=== PATIENT | female | born 1985 | race American Indian/Alaskan Native ===

== ENCOUNTER 2021-08-10 00:25 | Emergency (ER) | payer SELFPAY ==
[2021-08-10 01:03] VITALS: BP 117/69
[2021-08-10] MEDS ORDERED: BENZONATATE 100 MG CAP PO ONE (04:57)
[2021-08-10] MEDS ORDERED: ONDANSETRON 4 MG ODT TAB PO ONE (04:57)
[2021-08-10] MEDS ORDERED: IBUPROFEN 400 MG TAB PO ONE (04:57)
--- NOTE | 2021-08-10 04:57 | Emergency Department Report ---
ED General Adult HPI - General Chief complaint: Upper Respiratory Infection Stated complaint: COUGH AND CONGESTION PUI?: Yes Time Seen by Provider: 08/10/21 04:46 Source: patient, RN notes reviewed Mode of arrival: Ambulatory Limitations: No Limitations - History of Present Illness Initial comments: The patient is a 35-year-old female, who is not known to myself previously. She states that she is not , does not smoke, is not exposed to smoke products, and is not COVID-19 vaccinated. She recently moved to [place] from [place]. She presents to the ER today with complaint of nontraumatic and nonproductive cough for the past 2 weeks, basically since July 18, after [employer]. Mild headache associate with coughing. No vomiting, but mild nausea, with coughing. No abdominal pain. No urinary symptoms. Reports to negative Covid test. Has not attempted [id number] Tylenol or ibuprofen. Has attempted Robitussin. States that she was told by her grandfather/family member, who is not a medical professional, that she may require steroids. -: Gradual, week(s) Location: head, mouth Consistency: constant Improves with: none Worsens with: none - Related Data Previous Rx's Medication Instructions Recorded Last Taken Type Albuterol Sulfate [Proair 90 mcg IH Q4HR PRN #2 aer.[email or web address] 08/10/21 Unknown Rx Respiclick] Benzonatate [Tessalon Perles] 100 mg PO Q8HR PRN #30 capsule 08/10/21 Unknown Rx Loratadine [Claritin] 10 mg PO QDAY #30 tablet 08/10/21 Unknown Rx Metoclopramide [Reglan] 10 mg PO QID PRN #30 tablet 08/10/21 Unknown Rx Allergies Allergy/AdvReac Type Severity Reaction Status Date / Time No Known Allergies Allergy Verified 08/10/21 05:08 ED Review of Systems ROS: Stated complaint: COUGH AND CONGESTION Other details as noted in HPI Constitutional: other (Denies loss of taste and smell). denies: fever ENT: congestion Respiratory: cough Cardiovascular: denies: syncope Gastrointestinal: denies: abdominal pain, nausea, vomiting Neurological: denies: weakness ED Past Medical Hx - Past Medical History Previous Medical History?: No - Surgical History Past Surgical History?: No - Medications Home Medications: Home Medications Medication Instructions Recorded Confirmed Last Taken Type Albuterol Sulfate [Proair 90 mcg IH Q4HR PRN #2 aer.[email or web address] 08/10/21 Unknown Rx Respiclick] Benzonatate [Tessalon Perles] 100 mg PO Q8HR PRN #30 capsule 08/10/21 Unknown Rx Loratadine [Claritin] 10 mg PO QDAY #30 tablet 08/10/21 Unknown Rx Metoclopramide [Reglan] 10 mg PO QID PRN #30 tablet 08/10/21 Unknown Rx ED Physical Exam - General Limitations: No Limitations General appearance: alert, in no apparent distress - Head Head exam: Present: atraumatic, normocephalic - Eye Eye exam: Present: normal appearance, EOMI. Absent: nystagmus - ENT ENT exam: Present: normal exam, normal orophraynx, mucous membranes moist, normal external ear exam - Neck Neck exam: Present: normal inspection, full ROM. Absent: tenderness, meningismus - Respiratory Respiratory exam: Present: normal lung sounds bilaterally. Absent: respiratory distress, wheezes, rales, rhonchi, stridor - Cardiovascular Cardiovascular Exam: Present: normal rhythm, bradycardia, normal heart sounds. Absent: tachycardia, irregular rhythm, systolic murmur, diastolic murmur, rubs, gallop - GI/Abdominal GI/Abdominal exam: Present: soft. Absent: distended, tenderness, guarding, rebound, rigid, pulsatile mass - Extremities Exam Extremities exam: Present: normal inspection, full ROM, other (2+ pulses noted in the bilateral upper extremities. There is no long bony tenderness. The muscular compartments are soft.). Absent: pedal edema, calf tenderness - Back Exam Back exam: Present: normal inspection, full ROM. Absent: tenderness, CVA tenderness (R), CVA tenderness (L), paraspinal tenderness, vertebral tenderness - Neurological Exam Neurological exam: Present: alert, oriented X3, other (No facial droop. Tongue midline. Extraocular movements intact bilaterally. Facial sensation intact to light touch in V1, V2, V3 distribution bilaterally. 5 and a 5 strength in 4 extremities. Sensation intact to light touch in 4 extremities.). Absent: motor sensory deficit - Psychiatric Psychiatric exam: Present: normal affect, normal mood - Skin Skin exam: Present: warm, dry, intact, normal color. Absent: rash ED Course Vital Signs 08/10/21 00:28 Temperature 98.0 F Pulse Rate 58 L Respiratory 18 Rate Blood Pressure 117/69 O2 Sat by Pulse 100 Oximetry ED Medical Decision Making - Lab Data Vital Signs 08/10/21 00:28 Temperature 98.0 F Pulse Rate 58 L Respiratory 18 Rate Blood Pressure 117/69 O2 Sat by Pulse 100 Oximetry - Medical Decision Making Differential diagnosis, including but not limited to: Bronchitis, COVID-19, seasonal allergies Assessment and plan: 35-year-old female, who was afebrile, with reassuring vital signs, who is not hypoxic, not stridulous, not wheezing, speaking on a cellular phone when I walked into the room, who does not appear to be in any acute distress. Physical exam is benign and unremarkable, this patient does not appear to have an emergent medical condition at this time. I counseled patient on the natural history of seasonal allergies and bronchitis. Recommended outpatient COVID-19 testing. Recommend Tylenol, Motrin, salt water gargles, outpatient COVID-19 vaccination, outpatient primary care follow- up. Critical care attestation.: If time is entered above; I have spent that time in minutes in the direct care of this critically ill patient, excluding procedure time. ED Disposition Clinical Impression: Bronchitis, COVID-19 vaccination not done, Encounter for medical screening examination Disposition: 01 HOME / SELF CARE / HOMELESS Is pt being admited?: No Does the pt Need Aspirin: No Condition: Good Instructions: Acute Bronchitis, Adult, Chronic Bronchitis (ED) Additional Instructions: As we discussed, patient likely has a component of bronchitis, allergies, COVID- 19, or all of the above. Recommend that patient complete COVID-19 vaccination series. Receipt of COVID-19 vaccination should decrease Covid symptomatology, and complications. Patient may take [id number]-[id number] Tylenol, 600 mg by mouth, every 4-6 hours as needed for physical pain, maximum daily dose to not exceed 3 g per 24 hours. Patient may take ibuprofen [id number], 400 mg by mouth, every 6 hours with food, as needed for physical pain. Patient may take the Tessalon Perles as needed for cough, Claritin as needed for allergies, and albuterol as needed for cough. Bronchitis symptoms typically last for 3 to 6 weeks. There is typically no cure for this. The patient is not wheezing. There is no indication for steroids. The patient may take Tylenol, Motrin, or Reglan medication as needed for headache, nausea/vomiting. We recommend follow-up with a primary care doctor in 2 to 4 weeks. Please return to the emergency room right away with new pain, worsened pain, migration of pain, active vomiting, change in mental status, confusion, inability tolerate liquid feeds, new, worsened or different symptoms not present on the initial emergency room evaluation. Prescriptions: Loratadine [Claritin] 10 mg PO QDAY #30 tablet Albuterol Sulfate [Proair Respiclick] 90 mcg IH Q4HR PRN #2 aer.[email or web address] PRN Reason: Wheezing Metoclopramide [Reglan] 10 mg PO QID PRN #30 tablet PRN Reason: Nausea Benzonatate [Tessalon Perles] 100 mg PO Q8HR PRN #30 capsule PRN Reason: Cough Referrals: [facility] [Provider Group] - 3-5 Days [facility] [Outside] - 3-5 Days
== END 2021-08-10 05:53 | disposition home or self-care (01) ==
LOC: ED 00:25
DX: J40 Bronchitis, not specified as acute or chronic (principal); Z79.899 Other long term (current) drug therapy
CPT/HCPCS: 99282; J3490; Q0162